=== PATIENT | female | born 1930 | race Caucasian/White ===

== ENCOUNTER 2017-01-06 11:32 | Emergency (ER) | payer OTHER ==
[2017-01-06 11:52] VITALS: BP 122/75; PULSE 85; TEMP 99.1; BMI 32.5
[2017-01-06] MEDS ORDERED: IBUPROFEN 600 MG TABLET (FP) PO ONE ×2 (11:54→12:44)
--- NOTE | 2017-01-06 12:00 | PDOC ---
History of Present Illness - General Chief Complaint: Cold Symptoms Stated Complaint: COUGH & COLD SYMPTOMS Time Seen by Provider: 01/06/17 11:47 - History of Present Illness Initial Comments: 01/06/17 11:59 86 yo F with h/o HTN, DM COPD here wtih c/o sore throat . nonproductive cough. pt states unsure if has allergies, but has had a lot of nasal congestion and post nasal drip for the last few days. no f/c no sob. no chest pain. no leg swelling. tolerating PO. no mod factors. no ear pain. Past History - Past Medical History Allergies/Adverse Reactions: Allergies Allergy/AdvReac Type Severity Reaction Status Date / Time telmisartan [From Micardis] AdvReac Mild Diarrhea Verified 10/20/15 07:20 Home Medications: Ambulatory Orders Glipizide 5 mg PO AM 12/12/11 Metformin HCl [Glucophage] 850 mg PO DAILY 12/12/11 Metoprolol Succinate 50 mg PO DAILY 12/12/11 Simvastatin [Zocor] 20 mg PO DAILY 12/12/11 Valsartan/Hydrochlorothiazide [Diovan Hct 80-12.5 mg Tablet] 1 each PO DAILY 03/17 Omeprazole [Prilosec (RX)] 20 mg PO PRN 01/26/15 Carbidopa/Levodopa [Sinemet 25-100 Mg Tablet] 1 each PO DAILY tablet 07/13/16 Fluticasone Prop 0.05% Nasal [Flonase -] 1 spray NS DAILY #1 bot MDD 1 01/06/17 Prednisone [Deltasone -] 5 mg PO DAILY 01/06/17 Anemia: No Asthma: No Cancer: No Cardiac Disorders: No CVA: No COPD: No CHF: No Dementia: No Diabetes: Yes (2009 TYPE II) GI Disorders: No Disorders: No HTN: Yes Hypercholesterolemia: Yes Kidney Stones: Yes Liver Disease: No Seizures: No Thyroid Disease: No - Surgical History Abdominal Surgery: No Appendectomy: No Cardiac Surgery: No Cholecystectomy: No Lung Surgery: No Neurologic Surgery: No Orthopedic Surgery: Yes (FX LEFT HIP/FX RIGHT ANKLE YRS AGO) - Psycho/Social/Smoking Cessation Hx Anxiety: No Suicidal Ideation: No Smoking Status: Yes Smoking History: Former smoker Years of Tobacco Use: 20 Have you smoked in the past 12 months: No Number of Cigarettes Smoked Daily: 10 If you are a former smoker, when did you quit?: 2003 Information on smoking cessation initiated: No Hx Alcohol Use: No Drug/Substance Use Hx: No Substance Use Type: None Hx Substance Use Treatment: No Review of Systems - Review of Systems Constitutional: No: Chills, Diaphoresis HEENTM: Yes: Nose Congestion, Throat Pain. No: Eye Pain, Throat Swelling, Mouth Pain Respiratory: Yes: Cough. No: Orthopnea, Shortness of Breath, Wheezing, Productive cough Cardiac (ROS): No: Chest Pain, Edema ABD/GI: Yes: Poor Appetite (under stress in hospital). No: Nausea : No: Burning All Other Systems: Reviewed and Negative *Physical Exam - Vital Signs Last Vital Signs Temp Pulse Resp BP Pulse Ox 99.1 F 85 16 122/75 95 01/06/17 11:40 01/06/17 11:40 01/06/17 11:40 01/06/17 11:40 01/06/17 11:40 - Physical Exam General Appearance: Yes: Nourished. No: Appropriately Dressed, Apparent Distress HEENT: positive: HÉCTOR, Other (clear rhinorrhea. boggy turbinates, posterior pharynx cobblestonins. no exudate. ). negative: Tonsillar Exudate, Tonsillar Erythema Neck: positive: Trachea midline Respiratory/Chest: positive: Lungs Clear, Normal Breath Sounds. negative: Respiratory Distress Cardiovascular: positive: Regular Rhythm, Regular Rate, S1, S2 Gastrointestinal/Abdominal: negative: Tender Musculoskeletal: positive: Normal Inspection Extremity: positive: Normal Capillary Refill, Normal Inspection Integumentary: positive: Normal Color, Dry, Warm Neurologic: positive: Fully Oriented, Alert, Normal Mood/Affect ED Treatment Course - RADIOLOGY Radiology Studies Ordered: Category Date Time Status CHEST PA & LAT [RAD] Stat Radiology 01/06/17 11:49 Ordered Medical Decision Making - Medical Decision Making 01/06/17 12:02 86 yo F with h/o COPD DM HTN here wtih nasal congestion and sore throat. allergies recently. likley due to post nasal drip. due to smoking copd history will CXR r/o pna, or other pathology. recommend flonase and motrin, chloraseptic. ENT followup as needed. 01/06/17 13:07 pt cxr with increased markings, in similar pattern to prior xray.l given copy of xray. recommend outpt followup. possible outpatinet CT. called salesperson furs dr for dr trivedi. Dr. Xavier, pt to follow up next week. flonase and motrin for post nasal drip. *DC/Admit/Observation/Transfer Diagnosis at time of Disposition: Postnasal drip - Discharge Dispostion Disposition: HOME Condition at time of disposition: Good Admit: No - Prescriptions Prescriptions: Fluticasone Prop 0.05% Nasal [Flonase -] 1 spray NS DAILY #1 bot MDD 1 - Patient Instructions Additional Instructions: you can follow up with Dr. Trivedi next week. call to schedule. take copy of your chest xray report to office. you should flonase nasal spray one spray each nostril daily to help with congestion and dripping. take ibuprofen 400 mg every 8 hrs as needed for sore throat. you can also use over the counter chloraseptic spray as directed. return for fever, cough productive of green phlegm or any concerns.
== END 2017-01-06 13:15 | disposition home or self-care (01) ==
LOC: FER 11:32
DX: R09.82 Postnasal drip (principal); I10 Essential (primary) hypertension; E11.9 Type 2 diabetes mellitus without complications; J44.9 Chronic obstructive pulmonary disease, unspecified
CPT/HCPCS: 71020-TC; 99281-25

== ENCOUNTER 2017-02-09 18:20 | Emergency (ER) | payer OTHER ==
[2017-02-09 18:28] VITALS: BP 159/87; PULSE 89; TEMP 97.4; BMI 29.2
--- NOTE | 2017-02-09 19:17 | PDOC ---
History of Present Illness - General History Source: Patient Exam Limitations: No Limitations - History of Present Illness Initial Comments: 02/09/17 19:23 The patient is a 86 year old female, with a significant past medical history of HTN, DM, and COPD who presents to the emergency department s/p mechanical fall a couple of days. The patient reports running after a shopping cart, falling and hitting the floor on her right side. She arrives with c/os of right sided flank pain. She denies being on any blood thinners. She denies any LOC or head trauma. She denies recent fevers, chills, headache or dizziness. She denies recent nausea, vomit, diarrhea or constipation. She denies recent chest pain or shortness of breath. Allergies: NKA Past surgical history: None reported. Social history: Nonsmoker. Denies EtOH use and recreational drug use. <Jesus Leon - Last Filed: 02/09/17 19:38> <Gurdeep Salcedo - Last Filed: 02/10/17 03:40> - General Chief Complaint: Injury Stated Complaint: RT RIBCAGE PAIN S/P FALL Time Seen by Provider: 02/09/17 19:16 Past History <Jesus Leon - Last Filed: 02/09/17 19:38> - Past Medical History Anemia: No Asthma: No Cancer: No Cardiac Disorders: No CVA: No COPD: No CHF: No Dementia: No Diabetes: Yes (2009 TYPE II) GI Disorders: No Disorders: No HTN: Yes Hypercholesterolemia: Yes Kidney Stones: Yes Liver Disease: No Seizures: No Thyroid Disease: No Other medical history: [facility] - Surgical History Abdominal Surgery: No Appendectomy: No Cardiac Surgery: No Cholecystectomy: No Lung Surgery: No Neurologic Surgery: No Orthopedic Surgery: Yes (FX LEFT HIP/FX RIGHT ANKLE YRS AGO) - Psycho/Social/Smoking Cessation Hx Anxiety: No Suicidal Ideation: No Smoking Status: Yes Smoking History: Former smoker Years of Tobacco Use: 20 Have you smoked in the past 12 months: No Number of Cigarettes Smoked Daily: 10 If you are a former smoker, when did you quit?: 2003 Information on smoking cessation initiated: No Hx Alcohol Use: No Drug/Substance Use Hx: No Substance Use Type: None Hx Substance Use Treatment: No <Gurdeep Salcedo - Last Filed: 02/10/17 03:40> - Past Medical History Allergies/Adverse Reactions: Allergies Allergy/AdvReac Type Severity Reaction Status Date / Time No Known Allergies Allergy Unverified 02/09/17 18:22 Home Medications: Ambulatory Orders Glipizide 5 mg PO AM 12/12/11 Metformin HCl [Glucophage] 850 mg PO DAILY 12/12/11 Metoprolol Succinate 50 mg PO DAILY 12/12/11 Simvastatin [Zocor] 20 mg PO DAILY 12/12/11 Valsartan/Hydrochlorothiazide [Diovan Hct 80-12.5 mg Tablet] 1 each PO DAILY 03/17 Omeprazole [Prilosec (RX)] 20 mg PO PRN 01/26/15 Carbidopa/Levodopa [Sinemet 25-100 Mg Tablet] 1 each PO DAILY tablet 07/13/16 Fluticasone Prop 0.05% Nasal [Flonase -] 1 spray NS DAILY #1 bot MDD 1 01/06/17 Prednisone [Deltasone -] 5 mg PO DAILY 01/06/17 Prednisone 5 mg PO DAILY #7 tablet 01/16/17 Review of Systems - Review of Systems Able to Perform ROS?: Yes Comments:: 02/09/17 19:23 GENERAL/CONSTITUTIONAL: No: fever, chills, weakness, loss of appetite. HEAD, EYES, EARS, NOSE AND THROAT: No: change in vision, ear pain, discharge, sore throat, throat swelling. CARDIOVASCULAR: No: chest pain, lightheadedness, palpitations, syncope RESPIRATORY: No: cough, shortness of breath, wheezing, hemoptysis, stridor. GASTROINTESTINAL: No: nausea, vomiting, diarrhea, abdominal cramping, rectal bleeding, constipation. GENITOURINARY: No: dysuria, hematuria, frequency, urgency, flank pain. MUSCULOSKELETAL: +right sided pain No: back pain, neck pain, joint pain, muscle swelling or pain SKIN : No: lesions, pallor, rash or easy bruising. NEUROLOGIC: No: headache, vertigo, paresthesias, weakness ENDOCRINE: No: unexplained weight gain or loss HEMATOLOGIC/LYMPHATIC: No: anemia, easy bleeding, swelling nodes. <Jesus Leon - Last Filed: 02/09/17 19:38> *Physical Exam - Vital Signs Last Vital Signs Temp Pulse Resp BP Pulse Ox 97.4 F L 89 18 159/87 96 02/09/17 18:20 02/09/17 18:20 02/09/17 18:20 02/09/17 18:20 02/09/17 18:20 - Physical Exam Comments: 02/09/17 19:38 GENERAL: The patient is in no acute distress. HEAD: Normal with no signs of trauma. EYES: PERRLA, EOMI, sclera anicteric, conjunctiva clear. ENT: Ears normal, nares patent, oropharynx clear without exudates. Moist mucous membranes. NECK: Normal range of motion, supple without lymphadenopathy, JVD, or masses. LUNGS: Breath sounds equal, clear to auscultation bilaterally. No wheezes, and no crackles. HEART: Regular rate and rhythm, normal S1 and S2 without murmur, rub or gallop. ABDOMEN: Soft, nontender, normoactive bowel sounds. No guarding, no rebound. No masses palpable. EXTREMITIES: Normal range of motion, no edema. No clubbing or cyanosis. No erythema, or tenderness. NEUROLOGICAL: Cranial nerves II through XII grossly intact. Normal speech. No focal neurological deficits. MUSCULOSKELETAL: +tenderness on the lateral right lower ribs. SKIN: Warm, Dry, normal turgor, no rashes or lesions noted. <Jesus Leon - Last Filed: 02/09/17 19:38> - Vital Signs Last Vital Signs Temp Pulse Resp BP Pulse Ox 97.4 F L 89 18 159/87 96 02/09/17 18:20 02/09/17 18:20 02/09/17 18:20 02/09/17 18:20 02/09/17 18:20 <Gurdeep Salcedo - Last Filed: 02/10/17 03:40> Medical Decision Making - Medical Decision Making 02/10/17 03:40 rib contusion belly ok analgesia <Gudreep Salcedo - Last Filed: 02/10/17 03:40> *DC/Admit/Observation/Transfer - Attestations Scribe Attestion: 02/09/17 19:23 Documentation prepared by Jesus Leon, acting as medical care evaluation specialist for Gurdeep Salcedo MD. <Jesus Leon - Last Filed: 02/09/17 19:38> <Gurdeep Salcedo - Last Filed: 02/10/17 03:40> Diagnosis at time of Disposition: Contusion of rib on right side Qualifiers: Encounter type: initial encounter Qualified Code(s): S20.211A - Contusion of right front wall of thorax, initial encounter - Discharge Dispostion Disposition: HOME Condition at time of disposition: Stable - Referrals Referrals: Keron Strickland MD [Primary Care Provider] - - Patient Instructions Printed Discharge Instructions: DI for Rib Contusion
== END 2017-02-09 20:00 | disposition home or self-care (01) ==
LOC: FER 18:20
DX: S20.211A Contusion of right front wall of thorax, initial encounter (principal); W18.39XA Other fall on same level, initial encounter; Y93.89 Activity, other specified; Y92.480 Sidewalk as the place of occurrence of the external cause; I10 Essential (primary) hypertension; E11.9 Type 2 diabetes mellitus without complications; J44.9 Chronic obstructive pulmonary disease, unspecified; E78.00 Pure hypercholesterolemia, unspecified; G20 Parkinson's disease
CPT/HCPCS: 71101-TC-RT; 99282-25

== ENCOUNTER 2020-11-16 09:55 | Inpatient (IN) | payer OTHER ==
[2020-11-16] MEDS ORDERED: SODIUM CHLORIDE 1,000 ML IV STA (10:33)
[2020-11-16 11:14] LABS: HEMATOCRIT 25.9 % (32.4-45.2); MCH 33.3 pg (25.7-33.7); MCHC 34.7 g/dl (32.0-36.0); MEAN CELL VOLUME 96.2 fl (80-96); MEAN PLT VOLUME 6.9 fl (7.5-11.1); PLATELET COUNT 104 K/MM3 (134-434); RBC 2.69 M/mm3 (3.60-5.2); RDW 22.9 % (11.6-15.6)
[2020-11-16 11:16] LABS: ADD RBC MORPHOLOGY YES; WHITE BLOOD COUNT 30.3 K/mm3 (4.0-10.8)
[2020-11-16 11:35] LABS: ALBUMIN 3.7 g/dl (3.4-5.0); CALCIUM 9.3 mg/dl (8.5-10); CREATININE 0.9 mg/dl (0.55-1.3); TOT PROT 6.4 g/dl (6.4-8.2)
[2020-11-16 11:46] LABS: ANISOCYTOSIS 3+
[2020-11-16 11:47] LABS: PLATELET ESTIMATE SLT DECREASE
[2020-11-16 14:12] LABS: HEMATOCRIT 24.7 % (32.4-45.2); HEMOGLOBIN 8.4 GM/dl (10.7-15.3); MCH 32.7 pg (25.7-33.7); MCHC 33.9 g/dl (32.0-36.0); MEAN CELL VOLUME 96.3 fl (80-96); MEAN PLT VOLUME 6.6 fl (7.5-11.1); PLATELET COUNT 112 K/MM3 (134-434); RBC 2.56 M/mm3 (3.60-5.2)
[2020-11-16 14:17] LABS: WHITE BLOOD COUNT 29.3 K/mm3 (4.0-10.8)
[2020-11-16] MEDS ORDERED: PIPERACILLIN/TAZOB 3.375 GM 3.375 GM in DEXTROSE 5%-WATER - 50 ML IVPB ONE (14:17)
[2020-11-16] MEDS ORDERED: PIPERACILLIN/TAZOBACTAM 3.375 GM VIAL IVPB ONE ×2 (14:19→21:07)
[2020-11-16] MEDS ORDERED: ACETAMINOPHEN 1000 MG/100 ML VIAL (NON FORMULARY) IVPB ONE (15:08)
[2020-11-16] MEDS ORDERED: ACETAMINOPHEN INJECTION 100 ML IVPB ONE (15:10)
[2020-11-16 15:30] LABS: INR 1.33 (0.82-1.09); PROTHROMBIN TIME (PATIENT) 14.6 SEC (10.2-13.0)
[2020-11-16] MEDS ORDERED: SODIUM CHLORIDE 1,000 ML IV SCH (20:45)
[2020-11-16] MEDS ORDERED: DEXTROSE 5%-WATER - 50 ML IVPB ONE (21:07)
[2020-11-16] MEDS: PIPERACILLIN/TAZOB 3.375 GM 3.375 GM in DEXTROSE 5%-WATER - 50 ML IVPB SCH (21:10)
[2020-11-16] MEDS ORDERED: ATORVASTATIN CA 20 MG TABLET (FP) PO SCH (22:00)
[2020-11-16] MEDS: INSULIN (NOVOLOG) ASPART 100 UNITS/ML 10ML VIAL SQ SCH (22:32)
[2020-11-17] MEDS ORDERED: DEXTROSE 5%-WATER - 50 ML IVPB ONE ×3 (00:44→17:14)
[2020-11-17] MEDS ORDERED: PIPERACILLIN/TAZOBACTAM 3.375 GM VIAL IVPB ONE ×3 (00:44→17:14)
[2020-11-17] MEDS: PIPERACILLIN/TAZOB 3.375 GM 3.375 GM in DEXTROSE 5%-WATER - 50 ML IVPB SCH ×3 (01:00→17:18)
[2020-11-17 03:56] VITALS: BMI 26.4
[2020-11-17] MEDS: INSULIN (NOVOLOG) ASPART 100 UNITS/ML 10ML VIAL SQ SCH ×2 (06:35→10:43)
[2020-11-17] MEDS ORDERED: TAMSULOSIN HCL 0.4 MG CAP PO ONE (08:45)
[2020-11-17 09:45] LABS: CHLORIDE 107 mmol/L (98-107); SODIUM 144 mmol/L (136-145)
[2020-11-17 09:52] LABS: BASO % 1.8 % (0-2.0); EOS % 0.2 % (0-4.5); HEMATOCRIT 25.1 % (32.4-45.2); HEMOGLOBIN 8.3 GM/dL (10.7-15.3); LYMPH % 84.4 % (8-40); MCH 32.2 pg (25.7-33.7); MCHC 33.3 g/dl (32.0-36.0); MEAN CELL VOLUME 96.8 fl (80-96); MEAN PLT VOLUME 7.2 fl (7.5-11.1); NEUT % 13.6 % (42.8-82.8); PLATELET COUNT 104 K/MM3 (134-434); RBC 2.59 M/mm3 (3.60-5.2); RDW 24.5 % (11.6-15.6); WHITE BLOOD COUNT 29.1 K/mm3 (4.0-10.0)
[2020-11-17] MEDS ORDERED: LOSARTAN POTASSIUM 50 MG TABLET PO SCH (10:00)
[2020-11-17 10:03] LABS: ANION GAP 5 MMOL/L (8-16); CO2 32 mmol/L (21-32)
[2020-11-17 10:06] LABS: CALCIUM 9.6 mg/dL (8.5-10.1)
[2020-11-17 10:07] LABS: ALBUMIN 3.4 g/dl (3.4-5.0); GLUCOSE,RANDOM 66 mg/dL (74-106); MAGNESIUM 1.6 mg/dL (1.8-2.4)
[2020-11-17 10:09] LABS: SGOT/AST 13 U/L (15-37)
[2020-11-17 10:11] LABS: BILIRUBIN,TOTAL 0.9 mg/dL (0.2-1); TOT PROT 6.3 g/dl (6.4-8.2)
[2020-11-17 10:12] LABS: BLOOD UREA NITROGEN 12.3 mg/dL (7-18)
[2020-11-17 10:14] LABS: ALK PHOS 51 U/L (45-117)
[2020-11-17 10:15] LABS: SGPT/ALT < 6 U/L (13-61)
[2020-11-17] MEDS ORDERED: D5-NS + 40 MEQ KCL - 40 MEQ/1,000 ML INFUS.BAG IV SCH ×2 (10:30→13:59)
[2020-11-17] MEDS ORDERED: KCL 10 MEQ IVPB 10 MEQ/100 ML INFUS.BAG IVPB SCH (10:30)
[2020-11-17] MEDS ORDERED: ALBUTEROL SO4 2.5/IPRATROPIUM 0.5 INH SOL 3 ML VIAL.NEB. NEB PRN ×2 (10:31→13:59)
[2020-11-17 10:35] LABS: IRON SERUM 204 ug/dL (50-175)
[2020-11-17 10:36] LABS: TOTAL IRON BINDING CAPACITY 290 ug/dL (250-450)
[2020-11-17] MEDS ORDERED: MAGNESIUM OXIDE 400 MG TABLET (FP) PO ONE (11:00)
[2020-11-17] MEDS ORDERED: POTASSIUM CHLORIDE ORAL LIQUID 20 MEQ/15 ML PO ONE (11:00)
[2020-11-17] MEDS ORDERED: ceFAZolin SODIUM 1 GM VIAL IVPB ONE (12:39)
[2020-11-17] MEDS ORDERED: MIDAZOLAM HCL 2 MG/2 ML SINGLE DOSE VIAL ONE (12:43)
[2020-11-17] MEDS ORDERED: ceFAZolin SODIUM 1 GM VIAL ONE (12:53)
[2020-11-17] MEDS ORDERED: EPHEDRINE SULFATE/0.9% NACL/PF 50 MG/10 ML SYRINGE NR ONE (13:12)
[2020-11-17] MEDS: INSULIN SLIDING SCALE (NOVOLOG) 1 VIAL SQ SCH ×2 (16:30→21:43)
[2020-11-17] MEDS ORDERED: POTASSIUM CHLORIDE TABS 20 MEQ TABLET.ER (FP) PO ONE (17:06)
[2020-11-17] MEDS ORDERED: PIPERACILLIN/TAZOB 3.375 GM 3.375 GM in DEXTROSE 5%-WATER - 50 ML IVPB SCH (18:00)
[2020-11-17] MEDS ORDERED: ATORVASTATIN CA 20 MG TABLET (FP) PO SCH (22:00)
[2020-11-18] MEDS ORDERED: PIPERACILLIN/TAZOBACTAM 3.375 GM VIAL IVPB ONE ×2 (02:51→09:54)
[2020-11-18] MEDS ORDERED: DEXTROSE 5%-WATER - 50 ML IVPB ONE ×2 (02:51→09:54)
[2020-11-18] MEDS: PIPERACILLIN/TAZOB 3.375 GM 3.375 GM in DEXTROSE 5%-WATER - 50 ML IVPB SCH ×2 (02:55→10:20)
[2020-11-18] MEDS: INSULIN SLIDING SCALE (NOVOLOG) 1 VIAL SQ SCH ×2 (06:59→11:32)
[2020-11-18 09:47] LABS: HEMATOCRIT 25.7 % (32.4-45.2); HEMOGLOBIN 8.7 GM/dL (10.7-15.3); MCH 32.9 pg (25.7-33.7); MCHC 33.9 g/dl (32.0-36.0); MEAN PLT VOLUME 7.1 fl (7.5-11.1); PLATELET COUNT 118 K/MM3 (134-434); RBC 2.65 M/mm3 (3.60-5.2); RDW 24.4 % (11.6-15.6)
[2020-11-18 09:56] LABS: WHITE BLOOD COUNT 30.7 K/mm3 (4.0-10.0)
[2020-11-18] MEDS ORDERED: LOSARTAN POTASSIUM 50 MG TABLET PO SCH (10:00)
[2020-11-18 10:06] LABS: CALCIUM 9.4 mg/dL (8.5-10.1)
[2020-11-18 10:07] LABS: ALBUMIN 3.6 g/dl (3.4-5.0); MAGNESIUM 1.7 mg/dL (1.8-2.4)
[2020-11-18 10:11] LABS: BILIRUBIN,TOTAL 0.8 mg/dL (0.2-1); PHOSPHOROUS 3.5 mg/dL (2.5-4.9); TOT PROT 6.8 g/dl (6.4-8.2)
[2020-11-18 10:17] VITALS: BP 104/59; PULSE 77; TEMP 97.7
[2020-11-18] MEDS ORDERED: MAGNESIUM OXIDE 400 MG TABLET (FP) PO ONE (10:44)
== END 2020-11-18 16:01 | disposition home or self-care (01) | DRG 660 ==
LOC: FER 09:55 → FM/S 14:52 → UNDOADMIN 14:52 → J6S 18:41
PROVIDERS: ADMIT Internal Medicine; ATTEND Student in an Organized Health Care Education/Training Program
PROC: 0T778DZ Dilation of Left Ureter with Intraluminal Device, Via Natural or Artificial Opening Endoscopic (ICD-10-PCS; principal; 2020-11-17 12:00)
DX: N13.2 Hydronephrosis with renal and ureteral calculous obstruction (principal); J98.11 Atelectasis; J44.9 Chronic obstructive pulmonary disease, unspecified; E11.9 Type 2 diabetes mellitus without complications; I10 Essential (primary) hypertension; Z79.84 Long term (current) use of oral hypoglycemic drugs; D64.9 Anemia, unspecified; D69.6 Thrombocytopenia, unspecified; G20 Parkinson's disease; K21.9 Gastro-esophageal reflux disease without esophagitis
CPT/HCPCS: 36415; 71045-TC-FY; 71250-TC; 74177-TC; 76000-TC-FY; 80053; 81003; 81015; 82607; 82728; 82962; 83540; 83550; 83735; 84100; 84443; 85025; 85027; 85610; 85730; 86850; 86900; 86901; 87040; 87086; 93005; 94760; 99285-25; C9803; J0131; Q9967; U0003; U0005